=== PATIENT | female | born 1975 | race American Indian/Alaskan Native ===

== ENCOUNTER 2017-08-15 19:03 | Emergency (ER) | payer OTHER ==
[2017-08-15 19:12] VITALS: BP 133/80; PULSE 57; RESP 18; TEMP 98.2; O2SAT 100
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
--- NOTE | 2017-08-16 07:50 | RAD ---
PROCEDURE: Radiographs of the Right Shoulder HISTORY: injury COMPARISON: No prior. FINDINGS: BONES: Normal. No fracture. JOINTS: Moderate osteoarthritic changes at the AC joint noted. SOFT TISSUES: Normal. OTHER FINDINGS: None. IMPRESSION: No evidence of acute fracture or dislocation. Moderate osteoarthritic changes at the AC joint.
== END 2017-08-15 20:11 | disposition home or self-care (01) ==
LOC: C.ER 19:03
DX: S46.911A Strain of unspecified muscle, fascia and tendon at shoulder and upper arm level, right arm, initial encounter (principal); V49.59XA Passenger injured in collision with other motor vehicles in traffic accident, initial encounter; Y92.414 Local residential or business street as the place of occurrence of the external cause